=== PATIENT | female | born 1960 | race Caucasian/White ===

== ENCOUNTER 2020-06-30 10:54 | Day surgery (SDC) | payer MEDICAID ==
[~2020-06-30] VITALS: Ht 160 cm; Wt 64.5 kg
[2020-06-30] MEDS ORDERED: NORVASC2.5 MG PO (11:51)
[2020-06-30] MEDS ORDERED: FUROSEMIDE40 MG PO (11:51)
[2020-06-30] MEDS ORDERED: K-DUR20 MEQ PO (11:52)
[2020-06-30] MEDS ORDERED: ULTRAM50 MG PO (11:52)
[2020-06-30] MEDS ORDERED: LISINOPRIL5 MG PO (11:53)
[2020-06-30] MEDS ORDERED: SODIUM BICARBO325 MG PO (11:53)
[2020-06-30] MEDS ORDERED: XIFAXAN550 MG PO (11:53)
[2020-06-30] MEDS ORDERED: CLARITIN 10 MG10 MG PO (11:53)
[2020-06-30 11:54] VITALS: BP 117/64; Ht 160 cm; Wt 64.5 kg
[2020-06-30 11:59] LABS: BASOPHILS 0.2 % (0-2); EOSINOPHILS 2.2 % (0-7); HEMATOCRIT 25.2 % (36.0-48.0); HEMOGLOBIN 8.1 g/dL (12-16); IMMATURE GRANULOCYTES 0.2 % (0-5); LYMPHOCYTES 20.3 % (15-50); MCH 24.8 pg (26.0-34.0); MCHC 32.1 g/dL (31.0-37.0); MCV 77.3 fL (80.0-100.0); MEAN PLATELET VOLUME 9.9 fL (7.4-10.4); MONOCYTES 16.3 % (2-11); NEUTROPHILS 60.8 % (40-80); PLATELET COUNT 257 10x3/uL (130-400); RBC 3.26 10x6/uL (4.00-5.40); RDW 21.8 % (11.5-14.5); WBC 12.6 10x3/uL (4.8-10.8)
[2020-06-30 12:14] LABS: INR 1.62 (0.85-1.17); PROTIME 19.1 SECONDS (11.6-15.0)
[2020-06-30 12:15] LABS: APTT 42.8 SECONDS (22.8-39.4)
[2020-06-30 12:28] LABS: ALBUMIN 2.7 g/dL (3.4-5.0); ANION GAP 7.6 mmol/L (8-16); BILIRUBIN - TOTAL 2.69 mg/dL (0.2-1.3); CALCIUM 8.4 mg/dL (8.5-10.1); CARBON DIOXIDE 34.4 mmol/L (21.0-32.0); CREATININE - SERUM 1.3 mg/dL (0.6-1.3)
--- NOTE | 2020-06-30 15:46 | NUR ---
1545 PT SITTING UP IN BED AND PCXR DONE. O2 SATS CONTINUE TO BE LOW WEAK COUGH. STATED SHE HAS BEEN TAKING ALLERGY MEDICINE SECOND PULSE OX
--- NOTE | 2020-06-30 15:52 | NUR ---
1555 RESPIRATOR HER TO GIVE TX
--- NOTE | 2020-06-30 17:26 | NUR ---
1700 PT ABLE TO MAINTAIN O2 SAT AT 94%. HX OF SMOKING 3 PACKS PER DAY. IV REMOVED AND INSTRUCTIONS GIVEN
== END 2020-06-30 17:20 | disposition home or self-care (01) ==
LOC: D.CT 10:54
PROVIDERS: Radiology Vascular & Interventional Radiology; ATTEND Family Medicine
DX: K70.31 Alcoholic cirrhosis of liver with ascites (principal); Z68.23 Body mass index [BMI] 23.0-23.9, adult; K70.11 Alcoholic hepatitis with ascites

== ENCOUNTER → 2020-12-16 10:48 | Outpatient (CLI) | payer BC ==
[2020-09-23 16:33] VITALS: BMI 19.5
[~2020-12-16 10:48] MED LIST: ALDACTONE100 MG PO; CHRONULAC30 ML PO; CLARITIN 10 MG10 MG PO; FUROSEMIDE40 MG PO; K-DUR20 MEQ PO; LASIX20 MG PO; LISINOPRIL5 MG PO; NORVASC2.5 MG PO; POTASSIUM CHLO10 ME1 PO; PROBIOTIC PO; SODIUM BICARBO325 MG PO; ULTRAM50 MG PO; XIFAXAN550 MG PO
== END | disposition home or self-care (01) ==
LOC: D.US 10:48
PROVIDERS: ATTEND General Practice
DX: K74.60 Unspecified cirrhosis of liver (principal)